=== PATIENT | female | born 1995 | race Caucasian/White ===

== ENCOUNTER 2019-01-19 10:47 | Emergency (ER) | payer MEDICAID ==
[2019-01-19] MEDS ORDERED: ONDANSETRON 4 MG/2 ML VIAL IVP ONE (11:11)
[2019-01-19] MEDS ORDERED: NS 1,000 ML IV ONE ×2 (11:25→11:49)
--- NOTE | 2019-01-19 11:52 | EDPHY ---
H & P Stated Complaint: mild etoh yesterday n/v since 0300/ mod abd pain Time Seen by Provider: 01/19/19 11:37 HPI/ROS: CHIEF COMPLAINT: Epigastric pain, vomiting HISTORY OF PRESENT ILLNESS: Patient is a 23-year-old female who comes to the emergency department complaining of nausea and vomiting as well as epigastric pain that began around 3 in the morning. She did drink moderately yesterday. She reports a similar episode in July that was worked up with no specific cause found. She denies and has an IUD in place. She denies urinary symptoms. No diarrhea. No chest pain or difficulty breathing. Severity: Moderate Modifying factors: None REVIEW OF SYSTEMS: Constitutional: denies: chills, fever, recent illness, recent injury EENTM: denies: blurred vision, double vision, nose congestion Respiratory: denies: cough, shortness of breath Cardiac: denies: chest pain, irregular heart rate, lightheadedness, palpitations Gastrointestinal/Abdominal: See HPI Genitourinary: denies: dysuria, frequency, hematuria, pain Musculoskeletal: denies: joint pain, muscle pain Skin: denies: lesions, rash, jaundice, bruising Neurological: denies: headache, numbness, paresthesia, tingling, dizziness, weakness Hematologic/Lymphatic: denies: blood clots, easy bleeding, easy bruising Immunologic/allergic: denies: HIV/AIDS, transplant 10 systems reviewed and negative except as noted EXAM: GENERAL: Well-appearing, well-nourished and in no acute distress. HEAD: Atraumatic, normocephalic. EYES: Pupils equal round and reactive to light, extraocular movements intact, sclera anicteric, conjunctiva are normal. ENT: TMs normal, nares patent, oropharynx clear without exudates. Moist mucous membranes. NECK: Normal range of motion, supple without lymphadenopathy or JVD. LUNGS: Breath sounds clear to auscultation bilaterally and equal. No wheezes rales or rhonchi. HEART: Regular rate and rhythm without murmurs, rubs or gallops. ABDOMEN: Slight right upper quadrant pain, negative Rae's, Soft, nontender, normoactive bowel sounds. No guarding, no rebound. No masses appreciated. BACK: No CVA tenderness, no spinal tenderness, step-offs or deformities EXTREMITIES: Normal range of motion, no pitting or edema. No clubbing or cyanosis. NEUROLOGICAL: Cranial nerves II through XII grossly intact. Normal speech, normal gait. 5/5 strength, normal movement in all extremities, normal sensation , normal reflexes PSYCH: Normal mood, normal affect. SKIN: Warm, dry, normal turgor, no visible rashes or lesions. Source: Patient Exam Limitations: No limitations - Personal History LMP (Females 10-55): IUD In Place Current Tetanus Diphtheria and Acellular Pertussis (TDAP): Yes - Medical/Surgical History Hx Asthma: No Hx Chronic Respiratory Disease: No Hx Diabetes: No Hx Cardiac Disease: No Hx Renal Disease: No Hx Cirrhosis: No Hx Alcoholism: No Hx HIV/AIDS: No Hx Splenectomy or Spleen Trauma: No Other PMH: denies - Family History Significant Family History: No pertinent family hx - Social History Smoking Status: Never smoked Alcohol Use: Sober Drug Use: None Constitutional: Initial Vital Signs Temperature (C) 36.4 C 01/19/19 10:54 Heart Rate 63 01/19/19 10:54 Respiratory Rate 18 01/19/19 10:54 Blood Pressure 121/69 H 01/19/19 10:54 O2 Sat (%) 96 01/19/19 10:54 O2 Delivery Mode Room Air Allergies/Adverse Reactions: No Known Allergies Allergy (Unverified 01/19/19 10:54) Home Medications: Medication Instructions Recorded Mirena 01/19/19 Promethazine HCl [Phenergan 25mg 25 mg PO Q6-8PRN PRN #20 tab 01/19/19 (RX)] Medical Decision Making - Diagnostics Imaging: Discussed imaging studies w/ call center coordinator Radiologist ED Course/Re-evaluation: The patient has an unusual finding on ultrasound consistent with lymph node or polyp. Her nausea is better after Reglan. Her white count is elevated and she did have some suprapubic pain so I will proceed with CT scan to further evaluate the lymph node as well as rule out appendix. 2:00 p.m. We discussed her CT results which are reassuring. She is feeling much better. She has done better with Phenergan then with Zofran. Will prescribe her this. She has been hydrated. She is eager to go home. We discussed indications for returning. We also discussed follow-up MRCP for her unusual biliary node. Differential Diagnosis: Partial list of the Differential diagnosis considered include but were not limited to; gastritis, biliary disease, appendicitis and although unlikely based on the history and physical exam, I also considered , ovarian cyst, torsion, UTI, STD. I discussed these differential diagnoses and the plan with the patient as well as the usual and expected course. The patient understands that the diagnosis is provisional and that in medicine we are not always correct and that further workup is often warranted. Usual and customary warnings were given. All of the patient's questions were answered. The patient was instructed to return to the emergency department should the symptoms at all worsen or return, otherwise to followup with the physician as we discussed. - Data Points Laboratory Results: Laboratory Results 01/19/19 11:15 01/19/19 11:15 Medications Given: Discontinued Medications Sodium Chloride (Ns) 1,000 mls @ 3,000 mls/hr IV ONCE ONE Stop: 01/19/19 11:44 Last Admin: 01/19/19 11:26 Dose: 1,000 mls Sodium Chloride (Ns) 1,000 mls @ 0 mls/hr IV EDNOW ONE; Wide Open PRN Reason: Protocol Stop: 01/19/19 11:50 Last Admin: 01/19/19 12:00 Dose: 1,000 mls Metoclopramide HCl (Reglan Injection) 10 mg IVP EDNOW ONE Stop: 01/19/19 12:11 Last Admin: 01/19/19 12:20 Dose: 10 mg Ondansetron HCl (Zofran) 4 mg IVP EDNOW ONE Stop: 01/19/19 11:12 Last Admin: 01/19/19 11:25 Dose: 4 mg Promethazine HCl (Phenergan) 12.5 mg IVP EDNOW ONE Stop: 01/19/19 13:52 Last Admin: 01/19/19 13:54 Dose: 12.5 mg Departure - Departure Disposition: Home, Routine, Self-Care Clinical Impression: Nausea & vomiting Qualifiers: Vomiting type: unspecified Vomiting Intractability: non-intractable Qualified Code(s): R11.2 - Nausea with vomiting, unspecified Condition: Fair Instructions: Acute Nausea and Vomiting (ED) Referrals: Elizabeth Slater MD [Primary Care Provider] - 2-3 days, call for appt. Prescriptions: Promethazine HCl [Phenergan 25mg (RX)] 25 mg PO Q6-8PRN PRN #20 tab PRN Reason: Nausea/Vomiting, Use 1st
[2019-01-19 12:02] LABS: PLATELET COUNT 246 10^3/uL (150-400)
[2019-01-19] MEDS ORDERED: METOCLOPRAMIDE 10 MG/2 ML VIAL ONE (12:06)
[2019-01-19] MEDS ORDERED: METOCLOPRAMIDE 10 MG/2 ML VIAL IVP ONE (12:10)
[2019-01-19] MEDS ORDERED: IOPAMIDOL (ISOVUE-300) 100 ML BTL ONE (12:53)
[2019-01-19] MEDS ORDERED: PROMETHAZINE HCL 25 MG/ML INJ ONE (13:49)
[2019-01-19] MEDS ORDERED: PROMETHAZINE HCL 25 MG/ML INJ IVP ONE (13:51)
[2019-01-19 14:14] VITALS: BP 109/75
== END 2019-01-19 14:14 | disposition home or self-care (01) ==
DX: R11.2 Nausea with vomiting, unspecified (principal); R10.13 Epigastric pain; Z97.5 Presence of (intrauterine) contraceptive device
CPT/HCPCS: 96374; J2550; J2765; Q9967

== ENCOUNTER → 2019-02-01 | Outpatient (CLI) | payer MEDICAID | LOC: FIMAGING 10:03 | PROVIDERS: ATTEND Internal Medicine | DX: R10.11 Right upper quadrant pain (principal); K82.8 Other specified diseases of gallbladder ==